=== PATIENT | male | born 1990 | race Hispanic/Latino ===

== ENCOUNTER 2017-04-15 16:00 | Emergency (ER) | payer OTHER ==
[2017-04-15 16:08] VITALS: BP 111/66; PULSE 85; RESP 17; TEMP 97.2; O2SAT 95
--- NOTE | 2017-04-15 16:27 | ED PDOC ---
HPI: Psych/Substance Abuse Time Seen by Provider: 04/15/17 16:10 Chief Complaint (Nursing): Psychiatric Evaluation Chief Complaint (Provider): Psychiatric Evaluation History Per: Patient History/Exam Limitations: no limitations Onset/Duration Of Symptoms: Mins (prior to arrival) Additional Complaint(s): Joe Zhong is a 26 year old male who presents to the emergency department via EMS for psychiatric evaluation after he was found on the ground acting "bizarre" prior to arrival although the patient denies this. Patient has no further medical complaints. PMD: none provided Past Medical History Reviewed: Historical Data, Nursing Documentation, Vital Signs Vital Signs: Last Vital Signs Temp 97.2 F L 04/15/17 16:05 Pulse 85 04/15/17 16:05 Resp 17 04/15/17 16:05 BP 111/66 04/15/17 16:05 Pulse Ox 95 04/15/17 16:05 - Family History Family History: States: Unknown Family Hx - Social History Current smoker - smoking cessation education provided: Yes Alcohol: None Drugs: Cannabis - Allergies Allergies/Adverse Reactions: Allergies Allergy/AdvReac Type Severity Reaction Status Date / Time No Known Allergies Allergy Verified 04/15/17 16:05 Review of Systems ROS Statement: Except As Marked, All Systems Reviewed And Found Negative Constitutional: Negative for: Other (medical complaints) Physical Exam - Reviewed Nursing Documentation Reviewed: Yes Vital Signs Reviewed: Yes - Physical Exam Appears: Positive for: Well, Non-toxic, No Acute Distress Head Exam: Positive for: ATRAUMATIC, NORMAL INSPECTION, NORMOCEPHALIC Skin: Positive for: Normal Color, Warm, Dry Eye Exam: Positive for: Normal appearance Cardiovascular/Chest: Positive for: Regular Rate, Rhythm. Negative for: Chest Non Tender, Murmur Respiratory: Positive for: Normal Breath Sounds. Negative for: Crackles, Rales , Rhonchi, Wheezing Extremity: Positive for: Normal ROM Neurologic/Psych: Positive for: Alert (x3), bleacher groundwood pulp II-XII, Oriented, Gait (WNL). Negative for: Motor/Sensory Deficits, Aphasia, Facial Droop - ECG O2 Sat by Pulse Oximetry: 95 (RA) Pulse Ox Interpretation: Normal Medical Decision Making Medical Decision Making: Initial Impression: Psychiatric evaluation Initial Plan: * Crisis evaluation Scribe Attestation: Documented by Alisson Lomeli, acting as a scribe for Jazmine Cota MD. Provider Scribe Attestation: All medical record entries made by the Scribe were at my direction and personally dictated by me. I have reviewed the chart and agree that the record accurately reflects my personal performance of the history, physical exam, medical decision making, and the department course for this patient. I have also personally directed, reviewed, and agree with the discharge instructions and disposition. Disposition - Clinical Impression Clinical Impression: Adjustment disorder - Disposition [facility]errals: [facility] [Outside] [facility] [Outside] Disposition: Routine/Home Disposition Time: 17:10 Condition: STABLE Instructions: Mood Disorders (ED)
== END 2017-04-15 17:18 | disposition home or self-care (01) ==
LOC: H.ER 16:00
DX: Z04.6 Encounter for general psychiatric examination, requested by authority (principal)